=== PATIENT | male | born 1970 | race Caucasian/White ===

== ENCOUNTER → 2018-09-18 | Outpatient (CLI) | payer BC ==
[~2018-09-18] MED LIST: FENO48TA2 PO; M-VI27TA PO; MILKPOW PO; VITA500046 PO
[2018-09-18 13:24] LABS: BASO % 0.4 % (0.0-1.0); EOS # 0.1 10^3/uL (0.0-0.50); EOS % 2.2 % (0.0-3.0); HEMOGLOBIN 14.9 g/dl (13.5-17.5); LYMPH # 0.7 10^3/uL (1.5-4.5); LYMPH % 14.7 % (24.0-44.0); MEAN CORPUSCULAR HGB CONC 35.5 g/dl (32.0-36.5); MEAN CORPUSCULAR VOLUME 90.3 fl (80.0-96.0); MONO # 0.8 10^3/uL (0.0-0.8); MONO % 17.3 % (0.0-5.0); NEUTROPHILS % 65.2 % (36.0-66.0); PLATELET COUNT, AUTOMATED 243 10^3/uL (150-450); RED BLOOD COUNT 4.65 10^6/uL (4.30-6.10); WHITE BLOOD COUNT 4.6 10^3/uL (4.0-10.0)
[2018-09-18 13:49] LABS: ALBUMIN 4.6 GM/DL (3.2-5.2); ALT/SGPT 66 U/L (12-78); BILIRUBIN,TOTAL 0.5 MG/DL (0.2-1.0); BLOOD UREA NITROGEN 22 MG/DL (7-18); CALCIUM LEVEL 9.2 MG/DL (8.5-10.1); CARBON DIOXIDE LEVEL 30 MEQ/L (21-32); CHLORIDE LEVEL 107 MEQ/L (98-107); CREATININE FOR GFR 1.24 MG/DL (0.70-1.30); GLOMERULAR FILTRATION RATE > 60.0 (>60); GLUCOSE, FASTING 76 MG/DL (70-100); POTASSIUM SERUM 4.2 MEQ/L (3.5-5.1); SODIUM LEVEL 143 MEQ/L (136-145); TOTAL PROTEIN 7.2 GM/DL (6.4-8.2)
[2018-09-18 13:56] LABS: FOLATE 12.7 NG/ML; TOTAL 25(OH) VITAMIN D 28.4 NG/ML (30.0-100.0); VITAMIN B12 LEVEL 510 PG/ML
[2018-09-24 11:17] LABS: HERPES ZOSTER, VARICELLA IgG 3292 index (Immune >165)
== END ==
LOC: M LAB 12:28
PROVIDERS: ATTEND Psychiatry & Neurology Neurology
DX: G35 Multiple sclerosis (principal)

== ENCOUNTER 2019-01-08 07:54 | Outpatient (CLI) | payer BC ==
[2019-01-08] VITALS (7 sets, daily range): BP systolic 110–128; BP diastolic 61–78
[~2019-01-08] VITALS: Ht 180.3 cm; Wt 100.0 kg
[2019-01-08] MEDS ORDERED: 0.22 MICRON FILTER (METHACHOLINE/OCREVUS) XX ONE (08:15)
[2019-01-08] MEDS ORDERED: OCRELIZUMAB 300 MG in NS 250 ML IV ONE (08:30)
[2019-01-08] MEDS ORDERED: FENO134C PO (08:32)
[2019-01-08] MEDS ORDERED: VITA200020 PO (08:33)
[2019-01-08] MEDS ORDERED: OCRE300I IV (08:34)
== END 2019-01-08 12:30 | disposition home or self-care (01) ==
LOC: M INFU 07:54
PROVIDERS: ATTEND Psychiatry & Neurology Neurology
DX: G35 Multiple sclerosis (principal)
CPT/HCPCS: 96413; 96415; J2350

== ENCOUNTER 2019-01-23 08:11 | Outpatient (CLI) | payer BC ==
[~2019-01-23] VITALS: Ht 172.7 cm; Wt 102.3 kg
[~2019-01-23 08:11] MED LIST changes: +FENO134C PO; +OCRE300I IV; +VITA200020 PO
[2019-01-23 08:15] VITALS: BP 140/66
[2019-01-23] MEDS ORDERED: ACETAMINOPHEN TAB 650MG DOSE (2X325MG) PO ONE (08:30)
[2019-01-23] MEDS ORDERED: methylPREDNISolone INJ 125 MG/2 ML VIAL (J2930) IV ONE (08:30)
[2019-01-23] MEDS ORDERED: diphenhydrAMINE 25 MG CAP PO ONE (08:30)
[2019-01-23] MEDS ORDERED: OCRELIZUMAB 300 MG in NS 250 ML IV ONE (08:30)
[2019-01-23 09:25] VITALS: BP 127/68
[2019-01-23 10:00] VITALS: BP 106/64
[2019-01-23 10:30] VITALS: BP 124/73
[2019-01-23 11:00] VITALS: BP 127/68
[2019-01-23 12:20] VITALS: BP 131/66
== END 2019-01-23 12:20 | disposition home or self-care (01) ==
LOC: M INFU 08:11
PROVIDERS: ATTEND Psychiatry & Neurology Neurology
DX: G35 Multiple sclerosis (principal)
CPT/HCPCS: 96413; 96415; J2350; J2930

== ENCOUNTER → 2019-03-21 | Outpatient (REF) | payer BC ==
[2019-03-21 13:40] LABS: BASO # 0.1 10^3/uL (0.0-0.2); BASO % 0.9 % (0.0-1.0); EOS # 0.2 10^3/uL (0.0-0.5); EOS % 3.3 % (0.0-3.0); HEMATOCRIT 44.1 % (42.0-52.0); HEMOGLOBIN 15.8 g/dl (13.5-17.5); LYMPH # 1.8 10^3/uL (1.5-5.0); LYMPH % 28.4 % (24.0-44.0); MEAN CORPUSCULAR HGB CONC 35.8 g/dl (32.0-36.5); MEAN CORPUSCULAR VOLUME 89.5 fl (80.0-96.0); MONO # 0.9 10^3/uL (0.0-0.8); MONO % 13.7 % (0.0-5.0); NEUTROPHILS # 3.4 10^3/uL (1.5-8.5); NEUTROPHILS % 53.5 % (36.0-66.0); PLATELET COUNT, AUTOMATED 290 10^3/uL (150-450); RED BLOOD COUNT 4.93 10^6/uL (4.30-6.10); WHITE BLOOD COUNT 6.4 10^3/uL (4.0-10.0)
[2019-03-21 14:33] LABS: ALBUMIN 4.8 GM/DL (3.2-5.2); ALT/SGPT 61 U/L (12-78); BILIRUBIN,TOTAL 0.6 MG/DL (0.2-1.0); BLOOD UREA NITROGEN 19 MG/DL (7-18); CARBON DIOXIDE LEVEL 29 MEQ/L (21-32); CHLORIDE LEVEL 105 MEQ/L (98-107); CREATININE FOR GFR 1.24 MG/DL (0.70-1.30); GLOMERULAR FILTRATION RATE > 60.0 (>60); GLUCOSE, FASTING 74 MG/DL (70-100); POTASSIUM SERUM 4.3 MEQ/L (3.5-5.1); SODIUM LEVEL 140 MEQ/L (136-145); TOTAL PROTEIN 7.6 GM/DL (6.4-8.2)
== END ==
LOC: M LABNEURO 12:55
PROVIDERS: ATTEND Psychiatry & Neurology Neurology
DX: G35 Multiple sclerosis (principal)

== ENCOUNTER 2019-07-22 09:05 | Outpatient (CLI) | payer BC ==
[~2019-07-22] VITALS: Ht 160 cm; Wt 102.3 kg
[2019-07-22 09:05] VITALS: BP 136/81
[2019-07-22] MEDS ORDERED: diphenhydrAMINE 25MG CAP PO ONE (09:30)
[2019-07-22] MEDS ORDERED: ACETAMINOPHEN TAB 650MG DOSE (2X325MG) PO ONE (09:30)
[2019-07-22] MEDS ORDERED: OCRELIZUMAB 600 MG in NS 500 ML IV ONE (09:30)
[2019-07-22] MEDS ORDERED: methylPREDNISolone INJ 125 MG/2 ML VIAL (J2930) IV ONE (09:30)
[2019-07-22 10:30] VITALS: BP 120/69
[2019-07-22 11:00] VITALS: BP 120/77
[2019-07-22 11:30] VITALS: BP 113/58
[2019-07-22] MEDS ORDERED: 0.22 MICRON FILTER (METHACHOLINE/OCREVUS) XX ONE (12:45)
[2019-07-22 14:30] VITALS: BP 121/61
[2019-07-22 14:45] VITALS: BP 118/72
== END 2019-07-22 14:45 | disposition home or self-care (01) ==
LOC: M INFU 09:05
PROVIDERS: ATTEND Psychiatry & Neurology Neurology
DX: G35 Multiple sclerosis (principal)

== ENCOUNTER 2020-07-21 09:36 | Outpatient (CLI) | payer BC ==
[~2020-07-21] VITALS: Ht 177.8 cm; Wt 102.2 kg
[2020-07-21] VITALS (7 sets, daily range): BP systolic 99–151; BP diastolic 57–78
[~2020-07-21 09:36] MED LIST changes: +ACETAMINOPHEN TAB 650MG DOSE (2X325MG) PO ONE; +OCRELIZUMAB 600 MG in NS 500 ML IV ONE; +diphenhydrAMINE 25MG CAP PO ONE; +methylPREDNISolone 125MG 2ML VIAL IV ONE
== END 2020-07-21 14:31 | disposition home or self-care (01) ==
LOC: M INFU 09:36
PROVIDERS: ATTEND Psychiatry & Neurology Neurology
DX: G35 Multiple sclerosis (principal)
CPT/HCPCS: 96413; 96415; J2350

== ENCOUNTER → 2020-12-23 | Outpatient (CLI) | payer BC ==
[~2020-12-23] MED LIST changes: -ACETAMINOPHEN TAB 650MG DOSE (2X325MG) PO ONE; -OCRELIZUMAB 600 MG in NS 500 ML IV ONE; -diphenhydrAMINE 25MG CAP PO ONE; -methylPREDNISolone 125MG 2ML VIAL IV ONE
[2020-12-23 12:11] LABS: BASO # 0.1 10^3/uL (0.0-0.2); BASO % 0.8 % (0.0-1.0); EOS # 0.3 10^3/uL (0.0-0.5); EOS % 4.3 % (0.0-3.0); HEMATOCRIT 46.4 % (42.0-52.0); HEMOGLOBIN 16.6 g/dl (13.5-17.5); LYMPH # 1.9 10^3/uL (1.5-5.0); LYMPH % 29.2 % (24.0-44.0); MEAN CORPUSCULAR HEMOGLOBIN 31.4 pg (27.0-33.0); MEAN CORPUSCULAR HGB CONC 35.8 g/dl (32.0-36.5); MEAN CORPUSCULAR VOLUME 87.7 fl (80.0-96.0); MONO # 0.8 10^3/uL (0.0-0.8); MONO % 12.8 % (2.0-8.0); NEUTROPHILS # 3.4 10^3/uL (1.5-8.5); NEUTROPHILS % 52.7 % (36.0-66.0); PLATELET COUNT, AUTOMATED 259 10^3/uL (150-450); RED BLOOD COUNT 5.29 10^6/uL (4.30-6.10); WHITE BLOOD COUNT 6.3 10^3/uL (4.0-10.0)
[2020-12-23 12:42] LABS: ALBUMIN 4.3 GM/DL (3.2-5.2); ALT/SGPT 132 U/L (12-78); BILIRUBIN,TOTAL 0.4 MG/DL (0.2-1.0); BLOOD UREA NITROGEN 18 MG/DL (7-18); CALCIUM LEVEL 9.3 MG/DL (8.5-10.1); CARBON DIOXIDE LEVEL 28 MEQ/L (21-32); CHLORIDE LEVEL 106 MEQ/L (98-107); CREATININE FOR GFR 1.19 MG/DL (0.70-1.30); GLOMERULAR FILTRATION RATE > 60.0 (>60); GLUCOSE, FASTING 115 MG/DL (70-100); POTASSIUM SERUM 4.4 MEQ/L (3.5-5.1); SODIUM LEVEL 141 MEQ/L (136-145); TOTAL PROTEIN 7.5 GM/DL (6.4-8.2)
[2020-12-23 12:48] LABS: TOTAL 25(OH) VITAMIN D 19.9 NG/ML (30.0-100.0)
[2020-12-23 12:49] LABS: FOLATE 19.9 NG/ML (>5.4); VITAMIN B12 LEVEL 630 PG/ML (247-911)
[2020-12-24 12:01] LABS: ALBUMIN 4.95 GM/DL (3.29-5.55); ALPHA-1-GLOBULIN % 3.2 % (2.9-4.9); ALPHA-1-GLOBULINS 0.24 GM/DL (0.17-0.41); ALPHA-2-GLOBULINS 0.55 GM/DL (0.42-0.99); ALPHA-2-GLOBULINS % 7.3 % (7.1-11.8); BETA-1-GLOBULINS 0.45 GM/DL (0.28-0.60); GAMMA GLOBULIN % 13.5 % (11.1-18.8); GAMMA GLOBULINS 1.01 GM/DL (0.65-1.58)
== END ==
LOC: M LAB 11:14
PROVIDERS: ATTEND Psychiatry & Neurology Neurology
DX: G35 Multiple sclerosis (principal)

== ENCOUNTER 2021-01-20 08:54 | Outpatient (CLI) | payer BC ==
[2021-01-20] VITALS (7 sets, daily range): BP systolic 121–135; BP diastolic 62–95
[~2021-01-20] VITALS: Ht 177.8 cm; Wt 102.2 kg
[2021-01-20] MEDS ORDERED: ACETAMINOPHEN TAB 650MG DOSE (2X325MG) PO ONE (09:00)
[2021-01-20] MEDS ORDERED: diphenhydrAMINE 25MG CAP PO ONE (09:00)
[2021-01-20] MEDS ORDERED: methylPREDNISolone 125MG 2ML VIAL IV ONE (09:00)
[2021-01-20] MEDS ORDERED: OCRELIZUMAB 600 MG in NS 500 ML IV ONE (09:00)
== END 2021-01-20 13:30 | disposition home or self-care (01) ==
LOC: M INFU 08:54
PROVIDERS: ATTEND Psychiatry & Neurology Neurology
DX: G35 Multiple sclerosis (principal)
CPT/HCPCS: 96365; 96366; 96375; J2350; J2930

== ENCOUNTER 2021-07-21 09:36 | Outpatient (CLI) | payer OTHER ==
[2021-07-21] VITALS (8 sets, daily range): BP systolic 115–145; BP diastolic 61–85
[~2021-07-21] VITALS: Ht 180.3 cm; Wt 111.3 kg
[~2021-07-21 09:36] MED LIST changes: +ACETAMINOPHEN TAB 650MG DOSE (2X325MG) PO ONE; -FENO134C PO; +FENO134C16 PO; +OCRELIZUMAB 600 MG in NS 500 ML IV ONE; +diphenhydrAMINE 25MG CAP PO ONE; +methylPREDNISolone 125MG 2ML VIAL IV ONE
== END 2021-07-21 13:50 | disposition home or self-care (01) ==
LOC: M INFU 09:36
PROVIDERS: ATTEND Psychiatry & Neurology Neurology
DX: G35 Multiple sclerosis (principal)
CPT/HCPCS: 96365; 96366; 96375; J2350; J2930

== ENCOUNTER → 2021-11-23 | Outpatient (CLI) | payer OTHER ==
[~2021-11-23] MED LIST changes: -ACETAMINOPHEN TAB 650MG DOSE (2X325MG) PO ONE; -OCRELIZUMAB 600 MG in NS 500 ML IV ONE; -diphenhydrAMINE 25MG CAP PO ONE; -methylPREDNISolone 125MG 2ML VIAL IV ONE
[2021-11-23 14:26] LABS: BASO # 0.1 10^3/uL (0.0-0.2); BASO % 1.1 % (0.0-1.0); EOS # 0.2 10^3/uL (0.0-0.5); EOS % 2.5 % (0.0-3.0); HEMATOCRIT 48.1 % (42.0-52.0); HEMOGLOBIN 16.7 g/dl (13.5-17.5); MEAN CORPUSCULAR HEMOGLOBIN 31.3 pg (27.0-33.0); MEAN CORPUSCULAR HGB CONC 34.7 g/dl (32.0-36.5); MEAN CORPUSCULAR VOLUME 90.1 fl (80.0-96.0); MONO # 0.8 10^3/uL (0.0-0.8); MONO % 12.3 % (2.0-8.0); NEUTROPHILS # 3.5 10^3/uL (1.5-8.5); NEUTROPHILS % 53.9 % (36.0-66.0); PLATELET COUNT, AUTOMATED 263 10^3/uL (150-450); RED BLOOD COUNT 5.34 10^6/uL (4.30-6.10); WHITE BLOOD COUNT 6.5 10^3/uL (4.0-10.0)
[2021-11-23 14:55] LABS: ALBUMIN 4.4 GM/DL (3.2-5.2); ALT/SGPT 109 U/L (12-78); BILIRUBIN,TOTAL 0.6 MG/DL (0.2-1.0); BLOOD UREA NITROGEN 18 MG/DL (7-18); CALCIUM LEVEL 8.8 MG/DL (8.5-10.1); CARBON DIOXIDE LEVEL 27 MEQ/L (21-32); CHLORIDE LEVEL 108 MEQ/L (98-107); CREATININE FOR GFR 1.14 MG/DL (0.70-1.30); GLOMERULAR FILTRATION RATE > 60.0 (>60); GLUCOSE, FASTING 85 MG/DL (70-100); POTASSIUM SERUM 4.3 MEQ/L (3.5-5.1); SODIUM LEVEL 141 MEQ/L (136-145); TOTAL PROTEIN 7.5 GM/DL (6.4-8.2)
[2021-11-23 15:39] LABS: TOTAL 25(OH) VITAMIN D 34.6 NG/ML (30.0-100.0)
[2021-11-23 15:40] LABS: VITAMIN B12 LEVEL 421 PG/ML (247-911)
== END ==
LOC: M LAB 12:20
PROVIDERS: ATTEND Psychiatry & Neurology Neurology
DX: G35 Multiple sclerosis (principal)

== ENCOUNTER 2022-01-20 08:30 | Outpatient (CLI) | payer OTHER ==
[~2022-01-20] VITALS: Ht 180.3 cm; Wt 113.0 kg
[~2022-01-20 08:30] MED LIST changes: -FENO134C16 PO; +FENO134C20 PO
[2022-01-20 08:44] VITALS: BP 132/68
[2022-01-20] MEDS ORDERED: ACETAMINOPHEN TAB 650MG DOSE (2X325MG) PO ONE (09:00)
[2022-01-20] MEDS ORDERED: methylPREDNISolone 125MG 2ML VIAL IV ONE (09:00)
[2022-01-20] MEDS ORDERED: diphenhydrAMINE 25MG CAP PO ONE (09:00)
[2022-01-20] MEDS ORDERED: OCRELIZUMAB 600 MG in NS 500 ML IV ONE (09:00)
[2022-01-20 09:45] VITALS: BP 119/62
[2022-01-20 10:15] VITALS: BP 119/72
[2022-01-20 11:15] VITALS: BP 122/60
[2022-01-20 12:15] VITALS: BP 124/62
[2022-01-20 13:11] VITALS: BP 125/71
== END 2022-01-20 13:10 | disposition home or self-care (01) ==
LOC: M INFU 08:30
PROVIDERS: ATTEND Psychiatry & Neurology Neurology
DX: G35 Multiple sclerosis (principal)
CPT/HCPCS: 96365; 96366; 96375; J2350; J2930

== ENCOUNTER → 2022-03-04 | Outpatient (CLI) | payer OTHER ==
[2022-03-04 15:13] LABS: BILIRUBIN,DIRECT 0.2 MG/DL (<0.4); IRON (FE) 118 UG/DL (65-175); PERCENT SATURATION 31.8 % (19.7-50.0); TOTAL IRON BINDING CAPACITY 371 UG/DL (250-425)
[2022-03-04 15:14] LABS: ALBUMIN 4.5 G/DL (3.2-5.2); ALKALINE PHOSPHATASE 44 U/L (46-116); ALT/SGPT 132 U/L (7.0-40); AST/SGOT 69 U/L (<34); BILIRUBIN,TOTAL 0.6 MG/DL (0.3-1.2); TOTAL PROTEIN 7.2 G/DL (5.7-8.2)
[2022-03-04 15:15] LABS: IMMUNOGLOBULIN A 179.8 MG/DL (40-350)
[2022-03-04 15:37] LABS: HEPATITIS B SURFACE ANTIGEN NEGATIVE (NEGATIVE)
[2022-03-04 15:48] LABS: HEPATITIS B CORE ANTIBODY IGM NEGATIVE (NEGATIVE)
[2022-03-08 23:07] LABS: ALPHA 1 ANTITRYPSIN 136 mg/dL (101-187); ANCA-ATYPICAL <1:20 titer (Neg:<1:20); ANTI DOUBLE STRAND-DNA AB <1 IU/mL (0-9); ANTI-MITOCHONDRIAL ANTIBODY <20.0 Units (0.0-20.0); ANTINUCLEAR ANTIBODIES DIRECT Positive (Negative); CERULOPLASMIN 17.2 mg/dL (16.0-31.0); CYTOPLASMIC NEUTROP AB ANCA-C <1:20 titer (Neg:<1:20); LIVER-KIDNEY MICROSOMAL ABY <20.1 Units (0.0-20.0); PERINUCLEAR AB ANCA-P <1:20 titer (Neg:<1:20); SJOGREN'S ANTI SS-A <0.2 AI (0.0-0.9); SJOGREN'S ANTI SS-B <0.2 AI (0.0-0.9); SMITH ANTIBODIES <0.2 AI (0.0-0.9); TISSUE TRANSGLUTAMINASE IgA <2 U/mL (0-3)
== END ==
LOC: M LAB 13:21
PROVIDERS: ATTEND Internal Medicine Gastroenterology
DX: R94.5 Abnormal results of liver function studies (principal)

== ENCOUNTER → 2022-04-25 | Outpatient (CLI) | payer OTHER ==
[2022-04-25 12:41] LABS: ALBUMIN 4.3 G/DL (3.2-5.2); BILIRUBIN,DIRECT 0.2 MG/DL (<0.4); BILIRUBIN,TOTAL 0.8 MG/DL (0.3-1.2)
== END ==
LOC: M LAB 11:35
PROVIDERS: ATTEND Internal Medicine Gastroenterology
DX: R94.5 Abnormal results of liver function studies (principal)

== ENCOUNTER 2022-06-10 10:00 | Day surgery (SDC) | payer OTHER ==
[~2022-06-10] VITALS: Ht 180.3 cm; Wt 113.9 kg
[~2022-06-10 10:00] MED LIST changes: +AMPH1CAP9 PO; +MILK175C6 PO; +NS 1,000 ML IV ONE; +VITA100093 PO
[2022-06-10] MEDS ORDERED: propofoL 200 MG/20 ML VIAL As Ordered ONE (11:36)
[2022-06-10] MEDS ORDERED: LIDOCAINE 2% 100MG/5ML SDV (FOR ANES.) As Ordered ONE (11:36)
[2022-06-10 12:41] VITALS: BP 116/56
== END 2022-06-10 12:43 | disposition home or self-care (01) ==
LOC: M OPP 10:00
PROVIDERS: ATTEND Internal Medicine Gastroenterology
DX: Z12.11 Encounter for screening for malignant neoplasm of colon (principal); K64.8 Other hemorrhoids; K57.30 Diverticulosis of large intestine without perforation or abscess without bleeding; G47.33 Obstructive sleep apnea (adult) (pediatric); Z99.89 Dependence on other enabling machines and devices; Z79.60 Long term (current) use of unspecified immunomodulators and immunosuppressants; Z79.899 Other long term (current) drug therapy

== ENCOUNTER → 2022-07-21 | Outpatient (CLI) | payer OTHER ==
[~2022-07-21] MED LIST changes: +ACETAMINOPHEN TAB 650MG DOSE (2X325MG) PO ONE; -NS 1,000 ML IV ONE; +OCRELIZUMAB 600 MG in NS 500 ML IV ONE; +diphenhydrAMINE 25MG CAP PO ONE; +methylPREDNISolone 125MG 2ML VIAL IV ONE
== END ==
LOC: M INFU 09:00
PROVIDERS: ATTEND Psychiatry & Neurology Neurology
DX: G35 Multiple sclerosis (principal); Z53.9 Procedure and treatment not carried out, unspecified reason

== ENCOUNTER 2022-09-13 16:40 | Emergency (ER) | payer OTHER ==
[~2022-09-13] VITALS: Ht 177.8 cm; Wt 102.3 kg
[~2022-09-13 16:40] MED LIST changes: -ACETAMINOPHEN TAB 650MG DOSE (2X325MG) PO ONE; -OCRELIZUMAB 600 MG in NS 500 ML IV ONE; -diphenhydrAMINE 25MG CAP PO ONE; -methylPREDNISolone 125MG 2ML VIAL IV ONE
[2022-09-13 16:41] VITALS: TEMP 98.8
[2022-09-13] MEDS ORDERED: OXYB5TAB10 PO (16:56)
[2022-09-13] MEDS ORDERED: FLUO10CA18 PO (16:56)
[2022-09-13] MEDS ORDERED: NAPR220C14 PO (16:56)
[2022-09-13 17:50] LABS: BASO % 0.2 % (0.0-1.0); EOS # 0.1 10^3/uL (0.0-0.5); EOS % 0.8 % (0.0-3.0); HEMATOCRIT 44.2 % (42.0-52.0); HEMOGLOBIN 15.7 g/dl (13.5-17.5); LYMPH # 1.7 10^3/uL (1.5-5.0); LYMPH % 14.2 % (24.0-44.0); MEAN CORPUSCULAR HEMOGLOBIN 31.5 pg (27.0-33.0); MEAN CORPUSCULAR HGB CONC 35.5 g/dl (32.0-36.5); MEAN CORPUSCULAR VOLUME 88.6 fl (80.0-96.0); MONO # 1.3 10^3/uL (0.0-0.8); MONO % 10.6 % (2.0-8.0); NEUTROPHILS # 9.1 10^3/uL (1.5-8.5); NEUTROPHILS % 73.8 % (36.0-66.0); PLATELET COUNT, AUTOMATED 240 10^3/uL (150-450); RED BLOOD COUNT 4.99 10^6/uL (4.30-6.10); WHITE BLOOD COUNT 12.3 10^3/uL (4.0-10.0)
[2022-09-13 18:12] LABS: BLOOD UREA NITROGEN 19 MG/DL (9-23); CARBON DIOXIDE LEVEL 26 MMOL/L (20-31); CHLORIDE LEVEL 106 MMOL/L (98-107); CK-MB VALUE MASS < 1.0 NG/ML (<3.6); CPK CREATINE PHOSPHOKINASE 164 U/L (46-171); CREATININE FOR GFR 1.06 MG/DL (0.70-1.30); GLOMERULAR FILTRATION RATE > 60.0 (>56); GLUCOSE, FASTING 121 MG/DL (60-100); POTASSIUM SERUM 3.8 MMOL/L (3.5-5.1); SODIUM LEVEL 141 MMOL/L (136-145)
[2022-09-13 20:46] LABS: ALBUMIN 4.4 G/DL (3.2-5.2); ALKALINE PHOSPHATASE 39 U/L (46-116); ALT/SGPT 41 U/L (7.0-40); AST/SGOT 21 U/L (<34); BILIRUBIN,DIRECT 0.3 MG/DL (<0.4); BILIRUBIN,TOTAL 0.7 MG/DL (0.3-1.2); TOTAL PROTEIN 6.8 G/DL (5.7-8.2)
[2022-09-13 21:16] LABS: ERYTHROCYTE SEDIMENTATION RATE 2 mm/hr (0-20)
[2022-09-13] MEDS ORDERED: ceFAZolin SOD 2 GM in IV 1 EA IV ONE (21:40)
[2022-09-13] MEDS ORDERED: DOXY-443 PO (23:17)
[2022-09-13] MEDS ORDERED: CANEMIS41 XX (23:17)
[2022-09-13 23:46] VITALS: BP 127/69; O2SAT 97
== END 2022-09-13 23:46 | disposition home or self-care (01) ==
LOC: M ED 16:40
DX: L03.114 Cellulitis of left upper limb (principal); G35 Multiple sclerosis; E78.5 Hyperlipidemia, unspecified; G47.33 Obstructive sleep apnea (adult) (pediatric); F41.9 Anxiety disorder, unspecified; F32.A Depression, unspecified; Z79.899 Other long term (current) drug therapy
CPT/HCPCS: 71046; 73080; 80048; 80076; 81001; 82550; 82553; 83605; 84484; 85025; 85652; 86140; 87040; 93005; 94760; 96365; 99284; J0690

== ENCOUNTER 2022-10-04 07:30 | Outpatient (CLI) | payer OTHER ==
[~2022-10-04] VITALS: Ht 175.3 cm; Wt 103.0 kg
[~2022-10-04 07:30] MED LIST changes: +CANEMIS41 XX; +DOXY-443 PO; +FLUO10CA18 PO; +NAPR220C14 PO; +OXYB5TAB10 PO
[2022-10-04 07:46] VITALS: BP 153/79; TEMP 96.8; O2SAT 98
[2022-10-04] MEDS ORDERED: diphenhydrAMINE 25MG CAP PO ONE (08:00)
[2022-10-04] MEDS ORDERED: OCRELIZUMAB 600 MG in NS 500 ML IV ONE (08:00)
[2022-10-04] MEDS ORDERED: ACETAMINOPHEN TAB 650MG DOSE (2X325MG) PO ONE (08:00)
[2022-10-04] MEDS ORDERED: methylPREDNISolone 125MG 2ML VIAL IV ONE (08:00)
[2022-10-04 09:00] VITALS: BP 122/78; TEMP 97.8; O2SAT 96
[2022-10-04 09:30] VITALS: BP 128/82; TEMP 97.3; O2SAT 97
[2022-10-04 11:30] VITALS: BP 129/81; O2SAT 96
[2022-10-04 12:20] VITALS: BP 130/73; O2SAT 100
== END 2022-10-04 12:20 | disposition home or self-care (01) ==
LOC: M INFU 07:30
PROVIDERS: ATTEND Psychiatry & Neurology Neurology
DX: G35 Multiple sclerosis (principal)
CPT/HCPCS: 96365; 96366; J2930

== ENCOUNTER 2022-10-20 08:57 | Emergency (ER) | payer OTHER ==
[~2022-10-20] VITALS: Ht 177.8 cm; Wt 107.5 kg
[2022-10-20] MEDS ORDERED: CEPH500C (09:07)
[2022-10-20] MEDS ORDERED: SILD25TA2 (09:07)
[2022-10-20] MEDS ORDERED: IBUP200C25 PO (09:07)
[2022-10-20] MEDS ORDERED: cefTRIAXone SOD 1 GM in D5W MINI-BAG PLUS 50 ML IV ONE (11:30)
[2022-10-20 12:05] LABS: BASO % 0.4 % (0.0-1.0); EOS # 0.2 10^3/uL (0.0-0.5); EOS % 1.8 % (0.0-3.0); LYMPH # 1.8 10^3/uL (1.5-5.0); MEAN CORPUSCULAR HEMOGLOBIN 30.5 pg (27.0-33.0); MEAN CORPUSCULAR HGB CONC 34.1 g/dl (32.0-36.5); MEAN CORPUSCULAR VOLUME 89.6 fl (80.0-96.0); MONO # 1.3 10^3/uL (0.0-0.8); MONO % 11.4 % (2.0-8.0); NEUTROPHILS # 7.9 10^3/uL (1.5-8.5); PLATELET COUNT, AUTOMATED 270 10^3/uL (150-450); RED BLOOD COUNT 4.91 10^6/uL (4.30-6.10); WHITE BLOOD COUNT 11.3 10^3/uL (4.0-10.0)
[2022-10-20 12:22] LABS: ERYTHROCYTE SEDIMENTATION RATE 28 mm/hr (0-20)
[2022-10-20 12:34] LABS: BLOOD UREA NITROGEN 17 MG/DL (9-23); CALCIUM LEVEL 8.8 MG/DL (8.5-10.1); CARBON DIOXIDE LEVEL 29 MMOL/L (20-31); CHLORIDE LEVEL 105 MMOL/L (98-107); CREATININE FOR GFR 1.12 MG/DL (0.70-1.30); GLOMERULAR FILTRATION RATE > 60.0 (>56); GLUCOSE, FASTING 86 MG/DL (60-100); POTASSIUM SERUM 4.1 MMOL/L (3.5-5.1); SODIUM LEVEL 142 MMOL/L (136-145)
[2022-10-20] MEDS ORDERED: DOXY-443 PO (12:49)
[2022-10-20 13:09] VITALS: BP 132/67; TEMP 98; O2SAT 98
== END 2022-10-20 13:28 | disposition home or self-care (01) ==
LOC: M ED 08:57
DX: L03.116 Cellulitis of left lower limb (principal); G35 Multiple sclerosis; F32.A Depression, unspecified; G47.33 Obstructive sleep apnea (adult) (pediatric); Z79.1 Long term (current) use of non-steroidal anti-inflammatories (NSAID); Z79.899 Other long term (current) drug therapy
CPT/HCPCS: 73564; 80048; 83605; 85025; 85652; 86140; 93971; 96365; 99284; J0696

== ENCOUNTER → 2023-02-03 | Outpatient (CLI) | payer OTHER ==
[~2023-02-03] MED LIST changes: +CEPH500C; +IBUP200C25 PO; -OXYB5TAB10 PO; +OXYB5TAB11 PO; +SILD25TA2
== END ==
LOC: M RAD 10:03
PROVIDERS: ATTEND Urology
DX: R33.9 Retention of urine, unspecified (principal)

== ENCOUNTER → 2023-04-06 | Outpatient (CLI) | payer OTHER ==
[~2023-04-06] MED LIST changes: +ACETAMINOPHEN TAB 650MG DOSE (2X325MG) PO ONE; +OCRELIZUMAB 600 MG in NS 500 ML IV ONE; -OXYB5TAB11 PO; +OXYB5TAB14 PO; +diphenhydrAMINE 25MG CAP PO ONE; +methylPREDNISolone 125MG 2ML VIAL IV ONE
== END ==
LOC: M INFU 08:12
PROVIDERS: ATTEND Psychiatry & Neurology Neurology
DX: Z53.9 Procedure and treatment not carried out, unspecified reason (principal); G35 Multiple sclerosis

== ENCOUNTER 2023-04-17 08:55 | Outpatient (CLI) | payer OTHER ==
[~2023-04-17] VITALS: Ht 180.3 cm; Wt 113.6 kg
[2023-04-17] VITALS (7 sets, daily range): BP systolic 122–163; BP diastolic 72–93; O2SAT 96–98
[~2023-04-17 08:55] MED LIST changes: -ACETAMINOPHEN TAB 650MG DOSE (2X325MG) PO ONE; -OCRELIZUMAB 600 MG in NS 500 ML IV ONE; -diphenhydrAMINE 25MG CAP PO ONE; -methylPREDNISolone 125MG 2ML VIAL IV ONE
[2023-04-17] MEDS: diphenhydrAMINE 25MG CAP PO ONE (09:11)
[2023-04-17] MEDS: ACETAMINOPHEN TAB 650MG DOSE (2X325MG) PO ONE (09:12)
[2023-04-17] MEDS: methylPREDNISolone 125MG 2ML VIAL IV ONE (09:34)
[2023-04-17] MEDS: OCRELIZUMAB 600 MG in NS 500 ML IV ONE (09:40)
== END 2023-04-17 13:30 ==
LOC: M INFU 08:55
PROVIDERS: ATTEND Psychiatry & Neurology Neurology
DX: G35 Multiple sclerosis (principal)
CPT/HCPCS: 96365; 96366; 96375; J2930

== ENCOUNTER → 2023-08-30 | Outpatient (REF) | payer OTHER ==
[~2023-08-30] MED LIST changes: +DOXY-323 PO; -DOXY-443 PO; +FLUO-290 PO; -FLUO10CA18 PO
[2023-08-30 18:04] LABS: APPEARANCE, URINE CLEAR (CLEAR); BACTERIA, URINE AUTO NEGATIVE (NEGATIVE); BILIRUBIN, URINE AUTO NEGATIVE (NEGATIVE); BLOOD, URINE BLOOD NEGATIVE (NEGATIVE); COLOR, URINE YELLOW (YELLOW); GLUCOSE, URINE (UA) AUTO NEGATIVE (NEGATIVE); KETONE, URINE AUTO NEGATIVE (NEGATIVE); LEUKOCYTE ESTERASE, URINE AUTO 1+ (NEGATIVE); MUCUS, URINE SMALL (NEGATIVE); NITRITE, URINE AUTO NEGATIVE (NEGATIVE); PROTEIN, URINE AUTO NEGATIVE (NEGATIVE); RBC, URINE AUTO 3 /HPF (0-3); SPECIFIC GRAVITY URINE AUTO 1.023 (1.002-1.035); SQUAMOUS EPITHELIAL CELL UR AU 1 /HPF (0-6); UROBILINOGEN, URINE AUTO 0.2 mg/dL (0.0-2.0); WBC, URINE AUTO 17 /HPF (0-3)
== END ==
LOC: M SMT 16:46
PROVIDERS: ATTEND Physician Assistant
DX: R33.9 Retention of urine, unspecified (principal)

== ENCOUNTER 2023-10-05 08:15 | Outpatient (CLI) | payer OTHER ==
[~2023-10-05] VITALS: Ht 177.8 cm; Wt 113.6 kg
[2023-10-05 09:00] VITALS: BP 131/65; O2SAT 96
[2023-10-05] MEDS: diphenhydrAMINE 25MG CAP PO ONE (09:18)
[2023-10-05] MEDS: methylPREDNISolone 125MG 2ML VIAL IV ONE (09:18)
[2023-10-05] MEDS: ACETAMINOPHEN TAB 650MG DOSE (2X325MG) PO ONE (09:18)
[2023-10-05] MEDS: OCRELIZUMAB 600 MG in NS 500 ML IV ONE (09:28)
[2023-10-05 10:00] VITALS: BP 126/68; O2SAT 97
[2023-10-05 10:30] VITALS: BP 130/71; O2SAT 97
[2023-10-05 11:00] VITALS: BP 133/74; O2SAT 98
[2023-10-05 12:00] VITALS: BP 137/78; O2SAT 97
[2023-10-05 13:25] VITALS: BP 142/78; O2SAT 96
== END 2023-10-05 13:30 ==
LOC: M INFU 08:15
PROVIDERS: ATTEND Psychiatry & Neurology Neurology
DX: G35 Multiple sclerosis (principal)
CPT/HCPCS: 96365; 96366; 96375; J2919

== ENCOUNTER → 2024-02-16 | Outpatient (REF) | payer OTHER ==
[~2024-02-16] MED LIST changes: -DOXY-323 PO; +DOXY-441 PO
[2024-02-16 13:29] LABS: AMORPHOUS SEDIMENT MODERATE (NEGATIVE); APPEARANCE, URINE TURBID (CLEAR); BACTERIA, URINE AUTO 1+ (NEGATIVE); BILIRUBIN, URINE AUTO NEGATIVE (NEGATIVE); BLOOD, URINE BLOOD NEGATIVE (NEGATIVE); COLOR, URINE YELLOW (YELLOW); GLUCOSE, URINE (UA) AUTO NEGATIVE (NEGATIVE); KETONE, URINE AUTO NEGATIVE (NEGATIVE); LEUKOCYTE ESTERASE, URINE AUTO 1+ (NEGATIVE); MUCUS, URINE MODERATE (NEGATIVE); NITRITE, URINE AUTO POSITIVE (NEGATIVE); PROTEIN, URINE AUTO 1+ mg/dL (NEGATIVE); RBC, URINE AUTO 0 /HPF (0-3); SPECIFIC GRAVITY URINE AUTO 1.026 (1.002-1.035); SQUAMOUS EPITHELIAL CELL UR AU 0 /HPF (0-6); WBC, URINE AUTO 28 /HPF (0-3)
== END ==
LOC: M SMT 12:42
PROVIDERS: ATTEND Physician Assistant
DX: R30.0 Dysuria (principal)

== ENCOUNTER 2024-04-09 08:04 | Outpatient (CLI) | payer OTHER ==
[~2024-04-09] VITALS: Ht 177.8 cm; Wt 111.4 kg
[2024-04-09] MEDS: methylPREDNISolone 125MG 2ML VIAL IV ONE (08:20)
[2024-04-09] MEDS: ACETAMINOPHEN 650 MG PO ONE (08:20)
[2024-04-09] MEDS: diphenhydrAMINE 25MG CAP PO ONE (08:20)
[2024-04-09 08:30] VITALS: BP 138/78; O2SAT 95
[2024-04-09] MEDS: OCRELIZUMAB 600 MG in NS 500 ML IV ONE (08:58)
[2024-04-09 09:30] VITALS: BP 108/78; O2SAT 96
[2024-04-09] MEDS ORDERED: OCRELIZUMAB 300 MG in NS 250 ML IV ONE (09:30)
[2024-04-09 10:00] VITALS: BP 120/65; O2SAT 98
[2024-04-09 10:30] VITALS: BP 128/71; O2SAT 97
[2024-04-09 11:30] VITALS: BP 130/62; O2SAT 98
[2024-04-09 13:07] VITALS: BP 130/67; O2SAT 95
== END 2024-04-09 13:30 ==
LOC: M INFU 08:04
PROVIDERS: ATTEND Psychiatry & Neurology Neurology
DX: G35 Multiple sclerosis (principal)
CPT/HCPCS: 96365; 96366; J2919

== ENCOUNTER 2024-12-02 11:31 | Outpatient (CLI) | payer OTHER ==
[~2024-12-02] VITALS: Ht 177.8 cm; Wt 109.0 kg
[2024-12-02 11:40] VITALS: BP 119/73; O2SAT 94
[2024-12-02] MEDS: ACETAMINOPHEN 325 MG TAB PO ONE (11:52)
[2024-12-02] MEDS: OCRELIZUMAB 600 MG in NS 500 ML IV ONE (12:23)
[2024-12-02 13:00] VITALS: BP 110/70; O2SAT 96
[2024-12-02 13:30] VITALS: BP 128/75; O2SAT 96
[2024-12-02 14:00] VITALS: BP 122/76; O2SAT 97
[2024-12-02 14:30] VITALS: BP 124/79; O2SAT 97
[2024-12-02 16:25] VITALS: BP 163/72; O2SAT 95
== END 2024-12-02 15:25 | disposition home or self-care (01) ==
LOC: M INFU 11:31
PROVIDERS: ATTEND Psychiatry & Neurology Neurology
DX: G35.D Multiple sclerosis, unspecified (principal)
CPT/HCPCS: 96365; 96366; J2919